=== PATIENT | male | born 1960 | race Caucasian/White ===

== ENCOUNTER 2025-06-10 17:38 | Emergency (ER) | payer MEDICARE, OTHER ==
[~2025-06-10] VITALS: Ht 185.4 cm; Wt 72.6 kg
[2025-06-10] MEDS ORDERED: LIDOCAINE 1%-EPI 1:100,000 20 ML VIAL ONE (18:13)
[2025-06-10] MEDS ORDERED: TDAP [DIPH/PERTUSSIS/TET] 0.5 ML VIAL IM ONE (19:00)
[2025-06-10] MEDS: TDAP [DIPH/PERTUSSIS/TET] 0.5 ML VIAL IM ONE (19:09)
[2025-06-10 22:15] VITALS: BP 125/70; TEMP 98; O2SAT 99
[2025-06-11] MEDS ORDERED: GEMF600T PO (13:32)
[2025-06-11] MEDS ORDERED: DIVA-76 PO (13:32)
[2025-06-11] MEDS ORDERED: ERGO500093 PO (13:32)
[2025-06-11] MEDS ORDERED: ASPI-1169 PO (13:32)
[2025-06-11] MEDS ORDERED: CLOZ200T24 PO (13:32)
[2025-06-11] MEDS ORDERED: ALEN70TA80 PO (13:32)
[2025-06-11] MEDS ORDERED: LEVO100T PO (13:32)
[2025-06-11] MEDS ORDERED: VALS40TA4 PO (13:32)
[2025-06-11] MEDS ORDERED: ACET-73 PO (13:32)
== END 2025-06-10 22:16 | disposition home or self-care (01) ==
LOC: ER 17:40
DX: S01.111A Laceration without foreign body of right eyelid and periocular area, initial encounter (principal); F20.9 Schizophrenia, unspecified; I10 Essential (primary) hypertension; W01.10XA Fall on same level from slipping, tripping and stumbling with subsequent striking against unspecified object, initial encounter; Y93.89 Activity, other specified; Y92.89 Other specified places as the place of occurrence of the external cause; Y99.8 Other external cause status
CPT/HCPCS: 12013; 70450; 90471; 90715; 99285; A6403; J3490

== ENCOUNTER 2025-06-11 12:12 | Inpatient (IN) | payer MEDICARE, OTHER ==
[~2025-06-11] VITALS: Ht 185.4 cm; Wt 63.5 kg
[2025-06-11 13:07] LABS: PLATELET COUNT (AUTO) 169 K/uL (150-450); RED BLOOD CELL COUNT(AUTO) 3.51 MIL/uL (4.5-6.0); RED CELL DISTRIBUTION WIDTH 13.7 % (11.5-15.0); WHITE BLOOD COUNT (AUTO) 9.6 K/uL (4.3-11.0)
[2025-06-11] MEDS ORDERED: ACETAMINOPHEN 325 MG TABLET ONE (13:10)
[2025-06-11] MEDS: ACETAMINOPHEN 325 MG TABLET PO ONE (13:15)
[2025-06-11 13:23] LABS: CALCIUM, SERUM 9.0 mg/dL (8.5-10.1); CREATININE 0.8 mg/dL (0.6-1.3); SODIUM SERUM 137 mmol/L (136-145); UREA NITROGEN, BLOOD 16 mg/dL (7-18)
[2025-06-11 13:29] LABS: ASPARTATE AMINOTRANSFERASE 21 U/L (15-37); TOTAL PROTEIN, SERUM 7.1 g/dL (6.4-8.2)
[2025-06-11] MEDS ORDERED: ERGO500093 PO (13:32)
[2025-06-11] MEDS ORDERED: LEVO100T PO (13:32)
[2025-06-11] MEDS ORDERED: ASPI-1169 PO (13:32)
[2025-06-11] MEDS ORDERED: ALEN70TA80 PO (13:32)
[2025-06-11] MEDS ORDERED: DIVA-76 PO (13:32)
[2025-06-11] MEDS ORDERED: ACET-73 PO (13:32)
[2025-06-11] MEDS ORDERED: VALS40TA4 PO (13:32)
[2025-06-11] MEDS ORDERED: GEMF600T PO (13:32)
[2025-06-11] MEDS ORDERED: CLOZ200T24 PO (13:32)
[2025-06-11] MEDS ORDERED: ONDANSETRON HCL/PF 4 MG/2 ML VIAL IVP PRN (14:30)
[2025-06-11] MEDS ORDERED: ACETAMINOPHEN ES 500 MG TABLET PO PRN (14:30)
[2025-06-11] MEDS ORDERED: Z GUARD REMEDY 4 OZ OINT TP PRN (14:30)
[2025-06-11] MEDS ORDERED: MAG HYDROX/AL HYDROX/SIMETH 30 ML UDC PO PRN (14:30)
[2025-06-11] MEDS ORDERED: ACETAMINOPHEN 325 MG TABLET PO PRN (14:30)
[2025-06-11] MEDS: GEMFIBROZIL 600 MG TABLET PO SCH (17:44)
[2025-06-11] MEDS: IV NS 0.9% 1,000 ML IV PRN (17:52)
[2025-06-11] MEDS: MAGNESIUM HYDROXIDE 30 ML UDC PO PRN (18:09)
[2025-06-11] MEDS: DIVALPROEX SODIUM 250 MG TABLET.DR PO SCH (21:18)
[2025-06-11] MEDS: CLOZAPINE 100 MG TABLET PO SCH (21:18)
[2025-06-11 21:24] VITALS: BP 129/83; TEMP 97.9; O2SAT 100
[2025-06-11 22:27] LABS: APPEARANCE,URINE CLEAR (CLEAR); BLOOD, URINE NEGATIVE Ery/uL (NEGATIVE); LEUKOCYTE ESTERASE ,URINE NEGATIVE (NEGATIVE); NITRITE, URINE NEGATIVE (NEGATIVE); UGLUCOSE NEGATIVE (NEGATIVE)
[2025-06-11 22:45] LABS: ADD URINE CULTURE NO; SQUAMOUS EPITHELIAL CELL,UR 0-2 /HPF (None Seen)
[2025-06-12] VITALS: BP 134/79; TEMP 98.1; O2SAT 99
[2025-06-12 04:00] VITALS: BP 143/88; TEMP 98.1; O2SAT 99
[2025-06-12 06:49] LABS: CALCIUM, SERUM 9.4 mg/dL (8.5-10.1); CREATININE 0.8 mg/dL (0.6-1.3); PHOSPHORUS 4.0 mg/dL (2.5-4.9); SODIUM SERUM 143.0 mmol/L (136-145); UREA NITROGEN, BLOOD 21.0 mg/dL (7-18)
[2025-06-12 06:51] LABS: PLATELET COUNT (AUTO) 172 K/uL (150-450); RED BLOOD CELL COUNT(AUTO) 3.67 MIL/uL (4.5-6.0); RED CELL DISTRIBUTION WIDTH 13.9 % (11.5-15.0); WHITE BLOOD COUNT (AUTO) 8.4 K/uL (4.3-11.0)
[2025-06-12 08:00] VITALS: BP 120/90; TEMP 98.2; O2SAT 100
[2025-06-12] MEDS: VALSARTAN 40 MG TABLET PO SCH (08:08)
[2025-06-12] MEDS: LEVOTHYROXINE SODIUM 125 MCG TABLET PO SCH (08:08)
[2025-06-12] MEDS: ASPIRIN 81 MG TAB.CHEW PO SCH (08:08)
[2025-06-12] MEDS ORDERED: LEVOTHYROXINE SODIUM 100 MCG TABLET PO SCH (09:00)
[2025-06-12 12:00] VITALS: BP 105/73; TEMP 97.5; O2SAT 100
[2025-06-12 16:00] VITALS: BP 127/83; TEMP 97.9; O2SAT 100
[2025-06-12 20:00] VITALS: BP 116/88; TEMP 97.9; O2SAT 98
[2025-06-12] MEDS: ZOLPIDEM TARTRATE 5 MG TABLET PO PRN (21:18)
[2025-06-13] VITALS (8 sets, daily range): BP systolic 103–120; BP diastolic 70–88; TEMP 97.7–98.6; O2SAT 96–98
[2025-06-14] MEDS: ERGOCALCIFEROL (VITAMIN D 2) 50,000 UNIT CAPSULE PO SCH (00:05)
[2025-06-14 04:50] VITALS: BP 115/73; TEMP 98.1; O2SAT 98
[2025-06-14 08:00] VITALS: BP 133/80; TEMP 98.2; O2SAT 98
[2025-06-14 12:49] LABS: IRON, SERUM 20 ug/dl (50-175)
[2025-06-14] MEDS: SOD FERRIC GLUC 125 MG in IV NS 0.9% 100 ML IV SCH (14:38)
[2025-06-14] MEDS: ALENDRONATE 70 MG TABLET PO SCH (15:56)
[2025-06-14 16:00] VITALS: BP 101/60; TEMP 98.4; O2SAT 98
[2025-06-14 20:00] VITALS: BP 117/71; TEMP 97.7; O2SAT 98
[2025-06-15 04:00] VITALS: BP 116/81; TEMP 98.2; O2SAT 97
[2025-06-15 08:00] VITALS: BP 134/90; TEMP 97.7; O2SAT 98
[2025-06-15 08:09] LABS: CARBOHYDRATE AG 19-9 10.0 U/mL (0-35); CARCINOEMBRYONIC ANTIGEN (CEA) 3.7 ng/mL (0.0-4.7)
[2025-06-15 08:12] VITALS: BP 134/90
== END 2025-06-15 14:47 | DRG 948 ==
LOC: ER 12:16 → TELE1 14:51 → MEDSG1 06-13 16:00
PROVIDERS: ADMIT Internal Medicine; ATTEND Internal Medicine
DX: R53.1 Weakness (principal); D63.8 Anemia in other chronic diseases classified elsewhere; E03.9 Hypothyroidism, unspecified; R29.6 Repeated falls; S05.11XA Contusion of eyeball and orbital tissues, right eye, initial encounter; Y92.9 Unspecified place or not applicable; W19.XXXA Unspecified fall, initial encounter; F20.9 Schizophrenia, unspecified; I10 Essential (primary) hypertension; E78.5 Hyperlipidemia, unspecified; Z91.81 History of falling; Z79.82 Long term (current) use of aspirin; Z79.890 Hormone replacement therapy; Z79.83 Long term (current) use of bisphosphonates; Z79.899 Other long term (current) drug therapy
CPT/HCPCS: 36415; 70450-TC; 70486-TC; 71045-TC; 80048-TC; 80076-TC; 81001; 82378; 82607-TC; 82728-TC; 83540-TC; 83735-TC; 83921; 84100-TC; 84443-TC; 84484-TC; 85025-TC; 86301; 87081-TC; 93307-TC; 97116-TC; 97530-TC; 97535-TC; A4223; G0378; J2916; J7030